=== PATIENT | female | born 1990 | race Caucasian/White ===

== ENCOUNTER 2021-04-17 11:48 | Emergency (ER) | payer OTHER ==
[~2021-04-17] VITALS: Ht 167.6 cm; Wt 66.7 kg
[2021-04-17 12:12] VITALS: BP 140/93
[2021-04-17] MEDS ORDERED: AZITHROMYCIN 2250 MG PO (12:57)
== END 2021-04-17 13:19 | disposition home or self-care (01) ==
LOC: ER 11:48
DX: U07.1 COVID-19 (principal); Z88.5 Allergy status to narcotic agent